=== PATIENT | female | born 1960 | race Caucasian/White ===

== ENCOUNTER → 2016-11-13 | Day surgery (SDC) | payer BC ==
[2016-09-23 11:40] VITALS: BMI 24.0
[2016-11-06 09:49] VITALS: BMI 24.0
[~2016-11-13] VITALS: Ht 175.3 cm; Wt 75.0 kg
[~2016-11-13] MED LIST: ASCO10003 PO; CHOL400C7 PO; CMD5 PO; ENOX80IN SQ; LIDOCAINE HCL 2% 2 ML VIAL (20MG/ML) ONE; MISCCAP80 PO; OMEGCAP2 PO; PROPOFOL IV EMULSION 10 MG/ML 20 ML VIAL IV ONE; SODIUM CHLORIDE 0.9% 500ML 500 ML IV ONE; TCMD2 PO; WARF-237 PO
[2016-11-13 14:19] VITALS: Ht 175.3 cm; Wt 75.0 kg
--- NOTE | 2016-11-13 16:04 | Endo History and Physical ---
History & Physical Date of Service: Nov 13, 2016. Chief Complaint: HX OF CIRRHOSIS, ANEMIA Referring Physician: DR CARLOS DOE History of Present Illness variceal screen; colon screen Past Medical History Arthritis, Cancer, Other Past Surgical History Hx Cardiac Surgery: No Hx Internal Defibrillator: No Hx Pacemaker: No Hx Abdominal Surgery: Yes (UMBILICAL HERNIA REPAIR) Hx of Implantable Prosthesis: No Hx Post-Op Nausea and Vomiting: No Hx Cancer Surgery: Yes (SKIN CHEST EXCISION) Hx Thoracic Surgery: No Hx Orthopedic: Yes (LEFT LOWER LEG COMPOUND FX (MULT. SURGERIES),LEFT SHOULDER ARTHROSCOPY) Hx Urinary Tract Surgery: No Family History None Social History Smoking Status: Never Smoker Hx Substance Use: No Hx Alcohol Use: No (QUIT DRINKING 2012) Allergies Coded Allergies: Cephalosporins (Verified Allergy, Severe, ANAPHYLAXIS - Ancef, 11/06/16) Penicillins (Verified Allergy, Unknown, UNKNOWN PER PT, 11/13/16) Sulfamethoxazole w/Trimethoprim (Verified Adverse Reaction, Mild, RASH, ) Current Medications Reported Home Medications Medications Dose Route/Sig Max Daily Dose Days Date Category Lovenox (Enoxaparin Sodium) 80 Mg/0.8 Ml Inj 70 Mg SQ Q12H 11/13/16 Reported Coumadin (Warfarin Sod) 10 Mg Tab 1 Tab PO DAILY 30 11/06/16 Reported Coumadin (Warfarin Sod) 5 Mg Tab 1 Tab PO DAILY 11/06/16 Reported Coumadin (Warfarin Sod) 2 Mg Tab 1 Tab PO DAILY 11/06/16 Reported Probiotic (Probiotic Product) 1 Cap Cap 1 Cap PO QAM 09/23/16 Reported Fish Oil ([place]-3 Fatty Acids) 1 Cap Cap 1 Cap PO QAM 09/23/16 Reported Vitamin C (Ascorbic Acid) 1,000 Mg Tab 2 Tab PO QAM 09/23/16 Reported Vitamin D 400 Iu (Cholecalciferol) 400 Unit Cap 400 Inter.unit PO QAM 10/29/12 Reported Vital Signs Weight (Kilograms): 75.00 Height (Feet): 5 Height (Inches): 9 Date Time Temp Pulse Resp B/P (MAP) Pulse Ox O2 Delivery O2 Flow Rate FiO2 11/13/16 14:18 37.0 66 18 140/82 (101) 97 Room Air Physical Exam AAOx3 Nls1s2 Lungs CTA Abd soft Nt/BND + BS - CCE Assessment and Plan for EGD/colon for screening
--- NOTE | 2016-11-13 16:41 | Anesthesiology Progress Note ---
Anesthesia Post Op Note Date & Time Nov 13, 2016 at 16:40 Vital Signs Pain Intensity: 0 Vital Signs Past 12 Hours Date Time Temp Pulse Resp B/P (MAP) Pulse Ox O2 Delivery O2 Flow Rate FiO2 11/13/16 14:18 37.0 66 18 140/82 (101) 97 Room Air Notes Mental Status: alert / awake / arousable, participated in evaluation Pt Amnestic to Procedure: Yes Nausea / Vomiting: adequately controlled Pain: adequately controlled Airway Patency, RR, SpO2: stable & adequate BP & HR: stable & adequate Hydration State: stable & adequate Anesthetic Complications: no major complications apparent
--- NOTE | 2016-11-13 16:44 | GI REPORT ---
Procedure Date: 11/13/2016 4:22 PM Procedure: Colonoscopy Indications: Screening for colorectal malignant neoplasm Medicines: Propofol per Anesthesia Complications: No immediate complications. Estimated blood loss: None. Estimated Blood Loss: Estimated blood loss: none. Procedure: Pre-Anesthesia Assessment: - Prior to the procedure, a History and Physical was performed, and patient medications and allergies were reviewed. The patient's tolerance of previous anesthesia was also reviewed. The risks and benefits of the procedure and the sedation options and risks were discussed with the patient. All questions were answered, and informed consent was obtained. Prior Anticoagulants: The patient has taken no previous anticoagulant or antiplatelet agents. ASA Grade Assessment: III - A patient with severe systemic disease. After reviewing the risks and benefits, the patient was deemed in satisfactory condition to undergo the procedure. After I obtained informed consent, the scope was passed under direct vision. Throughout the procedure, the patient's blood pressure, pulse, and oxygen saturations were monitored continuously. The scope was introduced through the anus and advanced to the terminal ileum, with identification of the appendiceal orifice and IC valve. The colonoscopy was performed without difficulty. The patient tolerated the procedure well. The quality of the bowel preparation was good. Findings: The perianal and digital rectal examinations were normal. Pertinent negatives include normal sphincter tone, no palpable rectal lesions and no anal lesion or abnormality was detected. Many small-mouthed diverticula were found in the sigmoid colon. Non-bleeding internal hemorrhoids were found during retroflexion. The hemorrhoids were mild and small. The terminal ileum appeared normal. The exam was otherwise normal throughout the examined colon. No additional abnormalities were found on retroflexion. Impression: - Mild diverticulosis in the sigmoid colon. - Non-bleeding internal hemorrhoids. - The examined portion of the ileum was normal. - No specimens collected. Recommendation: - Discharge patient to home (ambulatory). - Resume regular diet. - Continue present medications. - Await pathology results. - Repeat colonoscopy in 10 years for screening purposes. - Return to GI clinic as previously scheduled. MD Dio Mulligan MD 11/13/2016 4:43:40 PM This report has been signed electronically. Note Initiated On: 11/13/2016 4:22 PM I attest to the content of the Intraoperative Record and orders documented therein, exceptions below
--- NOTE | 2016-11-13 16:49 | GI REPORT ---
Procedure Date: 11/13/2016 4:13 PM Procedure: Upper GI endoscopy Indications: Iron deficiency anemia, Cirrhosis rule out esophageal varices Medicines: Propofol per Anesthesia Complications: No immediate complications. Estimated blood loss: None. Estimated Blood Loss: Estimated blood loss: none. Procedure: Pre-Anesthesia Assessment: - Prior to the procedure, a History and Physical was performed, and patient medications and allergies were reviewed. The patient's tolerance of previous anesthesia was also reviewed. The risks and benefits of the procedure and the sedation options and risks were discussed with the patient. All questions were answered, and informed consent was obtained. Prior Anticoagulants: The patient has taken Coumadin (warfarin), last dose was 5 days prior to procedure. ASA Grade Assessment: III - A patient with severe systemic disease. After reviewing the risks and benefits, the patient was deemed in satisfactory condition to undergo the procedure. After obtaining informed consent, the endoscope was passed under direct vision. Throughout the procedure, the patient's blood pressure, pulse, and oxygen saturations were monitored continuously. The scope was introduced through the mouth, and advanced to the third part of duodenum. The upper GI endoscopy was accomplished without difficulty. The patient tolerated the procedure well. Findings: The examined esophagus was normal. A medium-sized hiatus hernia was found. The proximal extent of the gastric folds (end of tubular esophagus) was 39 cm from the incisors. The hiatal narrowing was 43 cm from the incisors. The Z-line was 39 cm from the incisors. Mild portal hypertensive gastropathy was found in the gastric fundus and in the gastric body. The exam of the stomach was otherwise normal. The examined duodenum was normal. The cardia and gastric fundus were normal on retroflexion. Retained gastric contents are not identified on this exam. Impression: - Normal esophagus. - Medium-sized hiatus hernia. - Portal hypertensive gastropathy. - Normal examined duodenum. - No specimens collected. Recommendation: - Discharge patient to home (ambulatory). - Resume regular diet. - Continue present medications. - Resume Coumadin (warfarin) today and Lovenox (enoxaparin) tomorrow at prior doses. - Return to GI clinic as previously scheduled with Fara Ahumada/Jenni. MD Dio Mulligan MD 11/13/2016 4:48:42 PM This report has been signed electronically. Note Initiated On: 11/13/2016 4:13 PM I attest to the content of the Intraoperative Record and orders documented therein, exceptions below
--- NOTE | 2016-11-13 16:55 | Discharge Instructions ---
Endoscopy Patient Instructions Date / Procedure(s) Performed Nov 13, 2016. Colonoscopy, EGD Allergy Information Coded Allergies: Cephalosporins (Verified Allergy, Severe, ANAPHYLAXIS - Ancef, 11/06/16) Penicillins (Verified Allergy, Unknown, UNKNOWN PER PT, 11/13/16) Sulfamethoxazole w/Trimethoprim (Verified Adverse Reaction, Mild, RASH, ) Discharge Date / Findings Nov 13, 2016. normal colon except diverticulosis and hemorrhoids 2) EGD with HH and mild portal HTN gastropathy Medication Instructions Stopped Medication(s): COUMADIN LAST DOSE 11/08/16; BRIDGED WITH LOVENOX LAST DOSE 11/12/16 Restart Stopped Medication(s): Reported Home Medications Medications Dose Route/Sig Max Daily Dose Days Date Category Lovenox (Enoxaparin Sodium) 80 Mg/0.8 Ml Inj 70 Mg SQ Q12H 11/13/16 Reported Coumadin (Warfarin Sod) 10 Mg Tab 1 Tab PO DAILY 30 11/06/16 Reported Coumadin (Warfarin Sod) 5 Mg Tab 1 Tab PO DAILY 11/06/16 Reported Coumadin (Warfarin Sod) 2 Mg Tab 1 Tab PO DAILY 11/06/16 Reported Probiotic (Probiotic Product) 1 Cap Cap 1 Cap PO QAM 09/23/16 Reported Fish Oil ([place]-3 Fatty Acids) 1 Cap Cap 1 Cap PO QAM 09/23/16 Reported Vitamin C (Ascorbic Acid) 1,000 Mg Tab 2 Tab PO QAM 09/23/16 Reported Vitamin D 400 Iu (Cholecalciferol) 400 Unit Cap 400 Inter.unit PO QAM 10/29/12 Reported start Coumadin tonight/ Lovenox tomorrow am Reported Home Medications Medications Dose Route/Sig Max Daily Dose Days Date Category Lovenox (Enoxaparin Sodium) 80 Mg/0.8 Ml Inj 70 Mg SQ Q12H 11/13/16 Reported Coumadin (Warfarin Sod) 10 Mg Tab 1 Tab PO DAILY 30 11/06/16 Reported Coumadin (Warfarin Sod) 5 Mg Tab 1 Tab PO DAILY 11/06/16 Reported Coumadin (Warfarin Sod) 2 Mg Tab 1 Tab PO DAILY 11/06/16 Reported Probiotic (Probiotic Product) 1 Cap Cap 1 Cap PO QAM 09/23/16 Reported Fish Oil ([place]-3 Fatty Acids) 1 Cap Cap 1 Cap PO QAM 09/23/16 Reported Vitamin C (Ascorbic Acid) 1,000 Mg Tab 2 Tab PO QAM 09/23/16 Reported Vitamin D 400 Iu (Cholecalciferol) 400 Unit Cap 400 Inter.unit PO QAM 10/29/12 Reported start Coumadin tonight/ Lovenox tomorrow am Provider Instructions Activity Restrictions - No exercising or heavy lifting for 24 hours. - Do not drink alcohol the day of the procedure. - Do not drive a car or operate machinery until the day after the procedure. - Do not make any important decisions or sign important papers in 24 hours after the procedure. Following Day: - Return to full activity which may include returning to work/school. Diet Start your diet with liquids and light foods (jello, soup, juice, toast). Then eat your usual diet if not nauseated. Treatment For Common After Affects For mild abdominal pain, bloating, or excessive gas: - Rest - Eat lightly - Lie on right side Follow-Up Information Follow-up with DR CARLOS DOE as scheduled Anesthesia Information What You Should Know You have had a procedure that required some medicine to reduce anxiety and discomfort. This treatment is called moderate sedation. After receiving the treatment, you may be sleepy, but you will be able to breathe on your own. The effects of the treatment may last for several hours. Follow these instructions along with Activity/Diet recommendations noted above: * Do NOT do anything where dizziness or clumsiness would be dangerous. * Rest quietly at home today, then you can be up and about tomorrow. * Have a responsible person stay with you the rest of today. * You may have had an I.V. today. If so, you may take the dressing off later today. Recommendations Call your doctor if: * Trouble breathing * Continuous vomiting for more than 24 hours * Temperature above 101 degrees * Severe abdominal pain or bloating * Pain not relieved by pain medicine ordered * There is increased drainage or redness from any incision * A large amount of rectal bleeding greater than 2-3 tablespoons. (If you had a polyp/s removed or have hemorrhoids, a small amount of blood - from the rectum is to be expected.) * You have any unanswered questions or concerns. IN THE EVENT OF A SERIOUS EMERGENCY, GO TO THE NEAREST EMERGENCY ROOM Your discharge instructions were prepared by provider Dio Alfaro. Patient Instructions Signature Page Candace Keller Patient (or Guardian) Signature/Date: I have read and understand the instructions given to me by my caregivers. Caregiver/RN/Doctor Signature/Date: The above-named patient and/or guardian has received patient instructions on this date. + Original Patient Signature Page (only) stays with chart. Please make copy for patient.
[2016-11-13 17:12] VITALS: BP 132/91; PULSE 63; O2SAT 96
== END | disposition home or self-care (01) ==
LOC: C.GI 13:50
PROVIDERS: ATTEND Internal Medicine Gastroenterology
DX: Z12.11 Encounter for screening for malignant neoplasm of colon (principal); K57.30 Diverticulosis of large intestine without perforation or abscess without bleeding; K64.8 Other hemorrhoids; D50.9 Iron deficiency anemia, unspecified; K44.9 Diaphragmatic hernia without obstruction or gangrene; K70.30 Alcoholic cirrhosis of liver without ascites; K31.89 Other diseases of stomach and duodenum; Z79.01 Long term (current) use of anticoagulants; Z79.899 Other long term (current) drug therapy